=== PATIENT | male | born 1975 | race Caucasian/White ===

== ENCOUNTER 2018-02-05 09:05 | Outpatient (CLI) | payer MEDICARE ==
--- NOTE | 2018-02-05 10:37 | CT ---
CT CERVICAL SPINE WITHOUT CONTRAST: Date: 02/05/18 Multiple axial tomograms obtained through the cervical spine with multiplanar reconstructions. INDICATION: Prior cervical spine surgery. Neck pain. Left arm paresthesias and pain. Comparison made to cervical spine films of 08/13/15. FINDINGS: Anterior fusion changes again noted. Anterior plate and screws again seen at C4, C5, C6, and C7. Inte rbody implants at these levels again noted. Partial fusion. There is mild loss of disc space at the C3-4 level with mild increased osteophyte. Mild loss of disc space at C7-T1 with anterior bridging osteophyte at this level. At the C3-4 level, mild disc bulge and spondylosis efface the anterior subarachnoid space. Mild teressa inal encroachment from uncinate hypertrophy. At C4-5, posterior spondylosis abuts the anterior cord. Mild foraminal narrowing due to uncinate hype rtrophy. At C5-6, mild spondylosis effaces the anterior subarachnoid space. Mild foraminal encroachment from u ncinate hypertrophy without evidence of significant stenosis. At C6-7, there is mild spondylosis. No evidence of foraminal stenosis. At C7-T1, there is minimal spondylosis. No central canal or foraminal stenosis. IMPRESSION: Postoperative fusion changes from C4-C7. Posterior spondylitic change is present at these levels as d escribed above. POS: [facility]
--- NOTE | 2018-02-05 11:22 | MRI ---
MRI LUMBAR SPINE WITHOUT CONTRAST: HISTORY: Left sided paresthesias. Numbness and pain in the left leg. COMPARISON: None. TECHNIQUE: An MRI of the lumbar spine is performed without intravenous Gadolinium administration. Multisequenti al, multiplanar imaging is performed. FINDINGS: There is appropriate T1 marrow signal intensity of the lumbar vertebrae. Lumbar spine vertebral body height is maintained. No fracture. No significant STIR hyperintensity to suggest vertebral body ed bruna or ligamentous injury. Symmetric signal intensity of psoas muscles and visualized solid organs. The conus medullaris terminates at the superior aspect of T12-L1. T12-L1: Adequate disk hydration. No significant central canal stenosis or foraminal narrowing. L1-L2: Adequate disk hydration. No significant central canal stenosis. The neural foramina are pat ent. L2-L3: Adequate disk hydration. No significant central canal stenosis. The neural foramina are pat ent. L3-L4; Adequate disk hydration. No significant central canal stenosis. The neural foramina are pat ent. L4-L5: Minimal central disk protrusion. Minimal central canal stenosis. The neural foramina are pa tent. An incidental hemangioma involving the inferior aspect of the L4 vertebral body is noted, allyson uring 1.5 cm in the anterior-posterior dimension. L5-S1: No significant central canal stenosis. The neural foramina are patent. There is mild bilate ral facet hypertrophy. IMPRESSION: No significant central canal stenosis or neural foraminal narrowing. POS: [facility]
== END 2018-02-05 09:06 | disposition home or self-care (01) ==
LOC: TBSIIMAG 09:05
PROVIDERS: ATTEND Surgery
DX: M54.5 Low back pain (principal); R20.2 Paresthesia of skin; M47.896 Other spondylosis, lumbar region; Z98.1 Arthrodesis status
CPT/HCPCS: 72125; 72148